=== PATIENT | female | born 1985 | race Asian ===

== ENCOUNTER 2017-12-19 13:28 | Outpatient (CLI) | payer MEDICAID | END 2017-12-19 13:29 | disposition home or self-care (01) | LOC: BICULT 13:28 | PROVIDERS: ATTEND Family Medicine | DX: Z34.82 Encounter for supervision of other normal pregnancy, second trimester (principal); Z3A.20 20 weeks gestation of pregnancy | CPT/HCPCS: 76805 ==

== ENCOUNTER 2018-04-30 09:02 | Day surgery (SDC) | payer OTHER ==
[2018-04-30 10:02] VITALS: BMI 25.4
[2018-04-30 10:50] LABS: Bilirubin Negative (Negative); Blood, Urine Small (Negative); Clarity CLEAR (Clear); Glucose, Urine (Dipstick) Negative (Negative); Leukocyte Negative (Negative); Nitrite Negative (Negative); Protein, Urine (Dipstick) Negative (Neg-Trace); Specific Gravity, Urine 1.008 (1.002-1.036); Urobilinogen 0.2 mg/dL (0.2-1.0)
[2018-04-30 10:52] LABS: Bacteria/HPF None Seen HPF (None Seen); Hyaline Casts/LPF 0-3 HYALINE CAST LPF (0-3 Hyaline); Pathc Cast-AUWi Flag 0.43 (0-2.49); RBC/HPF 0-3 HPF (0-3); Squamous Epithelial 0-3 HPF (0-3); WBC/HPF 0-3 HPF (0-3)
[2018-04-30 11:01] LABS: Transitional Epithelial 0-3 HPF (0-3)
--- NOTE | 2018-04-30 11:09 | PDOC.LDHP ---
Labor and Delivery H&P Chief complaint: contractions HPI: 32 y/o at 37w6d, patient of Dr. Kaia Ball, presents with ctx q 6 minutes starting this morning. She also had a small amount of bleeding that is now dark brown in color. Also has some burning with urination today. Denies heavy VB, LOF, or decreased FM. ROS neg for HEENT, cv, pulm, gi, gu, neuro, psych, skin, musculoskeletal or constitutional symptoms other than mentioned above. OB History Details: 1 prior elective termination Current complications: gestational diabetes Past Medical History: None Current medications: pre- vitamins Previous surgical history: none Social history: none - Physical Exam Vital signs reviewed and normal: yes General: NAD, resting Lungs: nonlabored breathing Abdomen: gravid Extremeties: no edema (130s, mod variability, + accels, no decels) FHT: category 1 [place] contractions every: q6 mins - Vaginal Exam cm dilated: 0 Effacement: 25% Station: -3 - OB Labs Blood type: AB RH: positive Additional Labs: Laboratory Results - last 24 hr 04/30/18 10:30 Urine Color YELLOW Urine Clarity CLEAR Urine pH 7.0 Ur Specific [place] 1.008 Urine Protein Negative Urine Glucose (UA) Negative Urine Ketones Negative Urine Blood Small H Urine Nitrite Negative Urine Bilirubin Negative Urine Urobilinogen 0.2 Ur Leukocyte Esterase Negative Urine RBC 0-3 Urine WBC 0-3 Ur Squamous Epith Cells 0-3 Ur Transition Epith Cell 0-3 Urine Bacteria None Seen Hyaline Casts 0-3 HYALINE CAST - Assessment 32 y/o at 37w6d with no e/o active labor or UTI. status reassuring with reactive NST. - Plan -: Encouraged to increase intake of water. D/c home with precautions. Advised to keep appointment on Saturday.
== END 2018-04-30 11:20 | disposition home or self-care (01) ==
LOC: L&D/OP 09:02
PROVIDERS: ATTEND Family Medicine
DX: O47.1 False labor at or after 37 completed weeks of gestation (principal); Z3A.37 37 weeks gestation of pregnancy
CPT/HCPCS: 81001; 87086; 99283

== ENCOUNTER 2018-05-02 15:40 | Inpatient (IN) | payer OTHER, SELFPAY ==
[~2018-05-02 15:40] MED LIST: Lidocaine 2% PF Inj 2 ML VIAL ONE
[2018-05-02] MEDS: Lactated Ringer's 1,000 ML IV SCH ×2 (16:30→19:26)
[2018-05-02] MEDS ORDERED: DISCONTINUE ALL PREVIOUS NARCOTICS FS SCH (16:30)
[2018-05-02] MEDS ORDERED: Bupivacaine 0.5% 20 ML, fentaNYL Citrate/PF 400 MCG in Sodium Chloride 0.9% 72 ML EPIDURAL SCH (16:30)
[2018-05-02 16:48] VITALS: BMI 25.8
[2018-05-02] MEDS ORDERED: Diphenoxylate HCl/Atropine Tablet PO PRN ×2 (17:08)
[2018-05-02] MEDS ORDERED: Methylergonovine 0.2 MG/ML VIAL IM PRN (17:08)
[2018-05-02] MEDS ORDERED: Ibuprofen 800 MG TAB PO PRN (17:08)
[2018-05-02] MEDS ORDERED: Lidocaine 1% (PF) 30 ML VIAL SC PRN (17:08)
[2018-05-02] MEDS ORDERED: Butorphanol Tartrate 1 MG/ML VIAL SLOW IVP PRN (17:08)
[2018-05-02] MEDS ORDERED: Misoprostol 200 MCG TAB PR PRN (17:08)
[2018-05-02] MEDS ORDERED: Promethazine HCl 25 MG/ML VIAL IM PRN ×2 (17:08→18:45)
[2018-05-02] MEDS ORDERED: Ondansetron HCl/PF 4 MG/2 ML Vial IVP PRN ×2 (17:08→18:45)
[2018-05-02] MEDS ORDERED: HYDROcodone/Acetaminophen 5/325 mg Tablet PO PRN ×2 (17:08)
[2018-05-02] MEDS ORDERED: Acetaminophen 500 MG TAB PO PRN (17:08)
[2018-05-02] MEDS ORDERED: Carboprost 250 MCG/ML AMP IM PRN (17:08)
[2018-05-02] MEDS ORDERED: NS w/ Oxytocin 10 units 500 ML IV SCH (17:15)
[2018-05-02 17:41] LABS: Hemoglobin 12.7 g/dL (12.0-16.0); Mean Corpuscular Hemoglobin 31.3 pg (27.0-31.0); Mean Corpuscular Volume 89.3 fL (78.0-98.0); Platelet Count 133 thou/uL (130-400); RBC Distribution Width 13.7 % (11.5-14.5); Red Blood Cell (RBC) Count 4.06 mill/uL (4.20-5.40); White Blood Cell (WBC) Count 10.7 thou/uL (4.8-10.8)
[2018-05-02 17:47] LABS: Syphilis Antibody Nonreactive (Nonreactive); Syphilis Antibody Index 0.04 S/CO (<1.00 Non-Reactive)
[2018-05-02 17:48] LABS: HBSAg Index 0.21 S/CO (0-0.99); Hep B Surf Ag Non-Reactive S/CO (NonReactive)
[2018-05-02] MEDS ORDERED: Acetaminophen 325 MG TAB PO PRN (18:45)
[2018-05-02] MEDS ORDERED: Lactated Ringer's 500 ML IV PRN (18:45)
[2018-05-02] MEDS ORDERED: ePHEDrine/0.9% NaCl/PF SYRINGE 50 mg/10 ml SLOW IVP PRN (18:45)
[2018-05-02] MEDS ORDERED: diphenhydrAMINE 50 MG/ML VIAL IVP PRN (18:45)
[2018-05-02] MEDS ORDERED: Eucerin (Mineral Oil/Petrolatum,White) 30 gm Jar TOP PRN (18:45)
[2018-05-02] MEDS ORDERED: Naloxone HCl 0.4 mg/ml Vial IVP PRN ×2 (18:45)
[2018-05-02] MEDS ORDERED: Communication Order-Pharmacy FS SCH (18:45)
[2018-05-02] MEDS ORDERED: fentaNYL Citrate/PF 400 MCG, Bupivacaine 0.5% 20 ML in Sodium Chloride 0.9% 72 ML EPIDURAL SCH (18:45)
[2018-05-02] MEDS: NS / Oxytocin 40 units/1000ml 1,000 ML IV PRN (23:58)
[2018-05-03] MEDS: NS / Oxytocin 40 units/1000ml 1,000 ML IV PRN (01:55)
[2018-05-03] MEDS ORDERED: Ondansetron HCl/PF 4 MG/2 ML Vial IVP PRN (03:49)
[2018-05-03] MEDS ORDERED: Benzocaine/Menthol 20-0.5% 60 ML CAN TOP PRN (03:49)
[2018-05-03] MEDS ORDERED: diphenhydrAMINE 25 MG CAP PO PRN (03:49)
[2018-05-03] MEDS ORDERED: NS / Oxytocin 40 units/1000ml 1,000 ML IV SCH (03:49)
[2018-05-03] MEDS ORDERED: Lanolin Ointment 7 GM TUBE TOP PRN (03:49)
[2018-05-03] MEDS ORDERED: Milk Of Magnesia 30 ML UDCUP PO PRN (03:49)
[2018-05-03] MEDS ORDERED: Acetaminophen/Codeine 30-300mg Tablet PO PRN (03:49)
[2018-05-03] MEDS ORDERED: Preparation H Ointment 28 GM TUBE PR PRN (03:49)
[2018-05-03] MEDS ORDERED: Bisacodyl 10 MG SUPP PR PRN (03:49)
[2018-05-03] MEDS ORDERED: HYDROcodone/Acetaminophen 5/325 mg Tablet PO PRN (03:49)
[2018-05-03] MEDS: Ibuprofen 800 MG TAB PO SCH ×3 (06:25→23:24)
[2018-05-03] MEDS: Prenatal Vitamin 1 TAB PO SCH (09:16)
[2018-05-03] MEDS: Docusate Calcium (SURFAK) 240 MG CAP PO SCH ×2 (09:16→23:24)
[2018-05-03] MEDS: Ferrous Sulfate 325 MG TAB PO SCH ×2 (09:18→15:49)
--- NOTE | 2018-05-03 09:27 | PDOC.PP ---
Post Progress Note Post Day #: 1 Subjective: Patient doing well this AM. No significant overnight events. Patient states she is feeling well. She is tolerating PO, ambulating without difficulty, and passing flatus. Pain is well controlled. She did state she had two instances overnight and this morning where she went to the restroom and noted passing of blood. She was unable to quantify but did state it felt like "a lot". Explained that some bleeding is anticipated PP, but that we would continue to monitor. Patient denies any dysuria. PO intake tolerated: yes Flatus: yes Ambulation: yes Vital Signs (12 hours) Temp Pulse Resp BP 05/03/18 08:00 98.3 F 67 16 83/43 L 05/03/18 04:53 98.3 F 78 18 95/50 L 05/03/18 03:49 98.2 F 84 18 95/50 L 05/03/18 01:05 98.3 F 78 18 Weight Weight 67 kg - Physical Examination General: NAD Cardiovascular: no m/r/g, RRR Respiratory: clear to auscultation bilaterally, non-labored breathing Abdominal: + bowel sounds, no distention, appropriately TTP Fundus firm & at: umbilicus Skin: no rash Neurological: no gross focal deficits Psychiatric: A&Ox3, normal affect Result Diagrams: 05/02/18 17:36 Additional Labs: Post Labs Blood Type AB POSITIVE 05/02/18 16:33 Hep Bs Antigen Non-Reactive S/CO (NonReactive) 05/02/18 16:33 (1) Term delivered Code(s): O80 - ENCOUNTER FOR FULL-TERM UNCOMPLICATED DELIVERY Status: Acute (2) Gestational diabetes Code(s): O24.419 - GESTATIONAL DIABETES MELLITUS IN , UNSP CONTROL Status: Acute - Assessment/Plan 32 year old G2 now P1011 that delivered TAGA male infant at 23:54 on 05/03/2018 via . Apgars 8/9. - Routine PP care - Pain well controlled - Bonding well with infant - BP 83/43 at last check. Will have nurse repeat. Patient currently asymptomatic. Fluid bolus if necessary. - Continue to encourage - Small amount of bleeding per nurse report (10-25 mL) at 01:00 Gestational DM, diet controlled - Controlled with diet Dispo: Stable. Anticipate d/c home tomorrow with 6 wk follow up. Fidelina Smith, DO PGY-2
--- NOTE | 2018-05-03 11:35 | PDOC.OPDEL ---
OB Operative/Delivery Note Delivery Dr/Surgeon: Noé Smith Pre-Delivery Diagnosis: active labor Procedure/Post Delivery Dx: spontaneous vaginal delivery Anesthesia: epidural - Findings A Sex: male Weight: 3.09 kg - 1 min: 8 - 5 min: 9 - Additional Findings/Plan Placenta delivered: spontaneous Repaired Obstetrical Laceration: 2nd degree (perineal) Estimated blood loss: QBL 515 mL Compilations/Other Findings: Delivering Physician: Fidelina Smith DO Attending: Kaia Ball MD Procedure: Spontaneous Vaginal Delivery Anesthesia: Epidural QBL: 515 mL Pre-op Diagnosis: 1. Term intrauterine in labor 2. Diet controlled GDM Post-op Diagnosis: 1. Term intrauterine , delivered 2. same as above 3. 2nd degree perineal laceration s/p repair Indications: A 32 y/o female presents in active labor Delivery Note: This is 32 yo F G2 now P1011 @ 38 wks who delivered a viable M at 23:54 on 05/03/2018. Following an uneventful antepartum course, a vigorous M was delivered over an intact perineum in the occipitoanterior position. Anterior shoulder and then remainder of the body delivered. Nuchal cord x2. The head was held down and mouth and nares were bulb suctioned. Cord clamped and cut and cord blood collected. Placenta delivered intact with a 3 vessel cord noted. Fundal massage was performed and the fundus was firm. The cervix and vagina were inspected and found to have 2nd degree perineal laceration noted and repaired with 3-[address] in the usual fashion with good approximation and hemostasis. went to nursery in good condition for routine care. Apgars were 8/9 at 1 & 5 minutes, respectively. Patient tolerated delivery well and went to after routine recovery/ care. Post delivery plan: routine recovery
[2018-05-04] MEDS: Ibuprofen 800 MG TAB PO SCH ×2 (07:49→14:23)
[2018-05-04] MEDS: Ferrous Sulfate 325 MG TAB PO SCH ×2 (08:43→16:44)
[2018-05-04] MEDS: Prenatal Vitamin 1 TAB PO SCH (08:50)
[2018-05-04] MEDS: Docusate Calcium (SURFAK) 240 MG CAP PO SCH (08:50)
--- NOTE | 2018-05-04 09:11 | PDOC.PP ---
Post Progress Note Post Day #: 2 Subjective: Patient doing well this AM. She states the vaginal bleeding is similar to a period. She denies any pain currently. She states she is ready to go home. PO intake tolerated: yes Flatus: yes Ambulation: yes Weight Weight 67 kg - Physical Examination General: NAD Cardiovascular: no m/r/g, RRR Respiratory: clear to auscultation bilaterally, non-labored breathing Abdominal: + bowel sounds, lochia (like a period), no distention, appropriately TTP Fundus firm & at: below umbilicus Skin: no rash Neurological: no gross focal deficits Psychiatric: A&Ox3, normal affect Result Diagrams: 05/02/18 17:36 Additional Labs: Post Labs Blood Type AB POSITIVE 05/02/18 16:33 Hep Bs Antigen Non-Reactive S/CO (NonReactive) 05/02/18 16:33 (1) Term delivered Code(s): O80 - ENCOUNTER FOR FULL-TERM UNCOMPLICATED DELIVERY Status: Acute (2) Gestational diabetes Code(s): O24.419 - GESTATIONAL DIABETES MELLITUS IN , UNSP CONTROL Status: Acute - Assessment/Plan 32 year old G2 now P1011 that delivered TAGA male infant at 23:54 on 05/03/2018 via . Apgars 8/9. - Routine PP care - Pain well controlled - Bonding well with infant - Continue to encourage Gestational DM, diet controlled - Controlled with diet Dispo: Stable. Plan for d/c home today. Follow with with Dr. Ball as discussed. Fidelina Smith, PGY-2
[2018-05-04 09:23] VITALS: BP 97/59; TEMP 98.1
--- NOTE | 2018-05-04 15:05 | DIS ---
DATE OF ADMISSION: 05/02/2018 DATE OF DISCHARGE: 05/04/2018 ADMITTING DIAGNOSES: 1. Intrauterine at 38 weeks. 2. Active labor. DISCHARGE DIAGNOSES: 1. Intrauterine at 38 weeks. 2. Active labor. PROCEDURE: Term spontaneous vaginal delivery. CONSULTATIONS: None. HOSPITAL COURSE: The patient is a 32-year-old G2, now P1 female, who presented to labor and delivery in active labor and was admitted for management. The patient's labor course was uncomplicated and r esulted in a term spontaneous vaginal delivery. The patient's course has been uncomplicat ed. Today is day #2, the patient reports that she is tolerating p.o., voiding on her own, having decreased lochia and good pain control. PHYSICAL EXAMINATION: VITAL SIGNS: Temperature today is 98.3, pulse is 78, respiratory rate of 18, blood pressure is 90/50 . GENERAL: The patient appears to be in no acute distress. She is alert and oriented, cooperative and pleasant to interact with. HEENT: Head is normocephalic, atraumatic. ABDOMEN: Fundus is firm. EXTREMITIES: Nontender, nonedematous. DISPOSITION: The patient is being discharged to home. DISCHARGE INSTRUCTIONS: She has instructions to take ibuprofen for pain. A prescription has been se nt to the pharmacy indicated in [place]. The patient to continue her vitamin and iron as n eeded. The patient does have a followup appointment with Dr. Ball in a week from Saturday, which she is intending on keeping.
== END 2018-05-04 19:05 | disposition home or self-care (01) | DRG 775 ==
LOC: L&D/OP 15:40 → L&D 17:20 → 3SW 05-03 02:06
PROVIDERS: ADMIT Family Medicine; ATTEND Family Medicine
PROC: 4A1HXCZ Monitoring of Products of Conception, Cardiac Rate, External Approach (ICD-10-PCS; principal; 2018-05-02)
PROC: 10E0XZZ Delivery of Products of Conception, External Approach (ICD-10-PCS; 2018-05-02)
PROC: 0KQM0ZZ Repair Perineum Muscle, Open Approach (ICD-10-PCS; 2018-05-02)
PROC: 4A1HXFZ Monitoring of Products of Conception, Cardiac Rhythm, External Approach (ICD-10-PCS; 2018-05-02)
PROC: 3E0S3BZ Introduction of Anesthetic Agent into Epidural Space, Percutaneous Approach (ICD-10-PCS; 2018-05-02)
PROC: 00HU33Z Insertion of Infusion Device into Spinal Canal, Percutaneous Approach (ICD-10-PCS; 2018-05-02)
DX: O24.420 Gestational diabetes mellitus in childbirth, diet controlled (principal); Z37.0 Single live birth; Z3A.38 38 weeks gestation of pregnancy; O70.1 Second degree perineal laceration during delivery; O69.81X0 Labor and delivery complicated by cord around neck, without compression, not applicable or unspecified
CPT/HCPCS: 36415; 51702; 85027; 86780; 86850; 86900; 86901; 87340; 99285; J3010; J3490; J7050